=== PATIENT | female | born 1950 | race Caucasian/White ===

== ENCOUNTER → 2017-08-19 | Emergency (ER) | payer OTHER ==
[~2017-08-19] VITALS: Ht 147.3 cm; Wt 92.5 kg
[~2017-08-19] MED LIST: CARDURA XL4 MG/BOTTL PO; CARDURA1 MG; GLUCOPHAGE XR500 MG PO; HYZAAR 100-251 UDTAB; HYZAAR 100-251 UDTAB PO; JANUVIA50 MG; LEVAQUIN750 MG PO; LOPRESSOR HCT 51 TAB; LOPRESSOR HCT 51 TAB PO; OMEPRAZOLE20 MG; ULTRACET PO; VYTORIN 10-20 M1 TAB; VYTORIN 10/40 M1 TAB PO
== END | disposition home or self-care (01) ==
LOC: ER 00:29
DX: L02.416 Cutaneous abscess of left lower limb (principal)

== ENCOUNTER 2018-02-05 13:46 | Outpatient (CLI) | payer OTHER | END 2018-02-05 13:58 | disposition home or self-care (01) | LOC: MAMO-SONO 13:46 | DX: Z12.31 Encounter for screening mammogram for malignant neoplasm of breast (principal); Z87.898 Personal history of other specified conditions; N60.11 Diffuse cystic mastopathy of right breast; N60.12 Diffuse cystic mastopathy of left breast; R92.0 Mammographic microcalcification found on diagnostic imaging of breast ==

== ENCOUNTER 2018-08-05 07:00 | Outpatient (CLI) | payer OTHER | END 2018-08-05 10:00 | disposition home or self-care (01) | LOC: MAMO-SONO 07:00 | DX: D05.12 Intraductal carcinoma in situ of left breast (principal); R92.0 Mammographic microcalcification found on diagnostic imaging of breast ==

== ENCOUNTER 2019-03-10 13:18 | Outpatient (CLI) | payer OTHER | END 2019-03-10 13:34 | disposition home or self-care (01) | LOC: MAMO-SONO 13:18 | DX: N60.11 Diffuse cystic mastopathy of right breast (principal); N60.12 Diffuse cystic mastopathy of left breast ==

== ENCOUNTER 2019-05-13 10:56 | Outpatient (CLI) | payer OTHER | END 2019-05-13 11:09 | disposition home or self-care (01) | LOC: MRI 10:56 | DX: M25.562 Pain in left knee (principal); M25.511 Pain in right shoulder; M25.561 Pain in right knee | CPT/HCPCS: 73218; 73221; 73718; 73721 ==

== ENCOUNTER → 2019-05-23 | Outpatient (CLI) | payer OTHER | END | disposition home or self-care (01) | LOC: RAD 11:38 | DX: R07.89 Other chest pain (principal) ==

== ENCOUNTER 2019-05-24 09:50 | Outpatient (CLI) | payer OTHER | END 2019-05-24 09:56 | disposition home or self-care (01) | LOC: LAB 09:50 | DX: D68.8 Other specified coagulation defects (principal); E78.2 Mixed hyperlipidemia; N39.0 Urinary tract infection, site not specified ==

== ENCOUNTER 2019-09-10 13:13 | Outpatient (CLI) | payer OTHER | END 2019-09-10 13:22 | disposition home or self-care (01) | LOC: RAD 13:13 | DX: J45.998 Other asthma (principal) ==

== ENCOUNTER 2019-09-10 14:32 | Outpatient (CLI) | payer OTHER | END 2019-09-10 15:44 | disposition home or self-care (01) | LOC: NUCLEAR 14:32 | DX: M81.0 Age-related osteoporosis without current pathological fracture (principal); Z13.820 Encounter for screening for osteoporosis ==

== ENCOUNTER 2020-03-22 12:30 | Outpatient (CLI) | payer OTHER | END 2020-03-22 14:09 | disposition home or self-care (01) | LOC: MAMO-SONO 12:30 | PROVIDERS: ATTEND Internal Medicine | DX: Z12.31 Encounter for screening mammogram for malignant neoplasm of breast (principal); D24.1 Benign neoplasm of right breast; D24.2 Benign neoplasm of left breast ==

== ENCOUNTER 2020-09-15 12:52 | Outpatient (CLI) | payer OTHER | END 2020-09-15 15:33 | disposition home or self-care (01) | LOC: RAD 12:52 | PROVIDERS: ATTEND Orthopaedic Surgery | DX: M17.12 Unilateral primary osteoarthritis, left knee (principal); M25.561 Pain in right knee; M25.562 Pain in left knee ==

== ENCOUNTER 2020-09-20 11:59 | Outpatient (CLI) | payer OTHER | END 2020-09-20 12:53 | disposition home or self-care (01) | LOC: MRI 11:59 | PROVIDERS: ATTEND Orthopaedic Surgery | DX: M17.12 Unilateral primary osteoarthritis, left knee (principal); M25.562 Pain in left knee | CPT/HCPCS: 73721 ==

== ENCOUNTER → 2021-05-03 | Outpatient (CLI) | payer OTHER | END | disposition home or self-care (01) | LOC: MAMO-SONO 10:45 | PROVIDERS: ATTEND Surgery | DX: N60.11 Diffuse cystic mastopathy of right breast (principal); N60.12 Diffuse cystic mastopathy of left breast; Z12.31 Encounter for screening mammogram for malignant neoplasm of breast ==

== ENCOUNTER → 2022-12-19 | Outpatient (CLI) | payer OTHER | END | disposition home or self-care (01) | LOC: MAMO-SONO 08:21 | PROVIDERS: ATTEND Surgery | DX: N60.11 Diffuse cystic mastopathy of right breast (principal); N60.12 Diffuse cystic mastopathy of left breast; Z12.31 Encounter for screening mammogram for malignant neoplasm of breast ==